=== PATIENT | female | born 1950 ===

== ENCOUNTER 2017-11-01 07:59 | Inpatient (IN) | payer OTHER ==
[~2017-11-01] VITALS: Ht 195.6 cm; Wt 99.8 kg
[2017-11-01] MEDS ORDERED: RELAFEN PO (09:00)
[2017-11-01] MEDS ORDERED: VISTARIL50 MG PO (09:00)
== END 2017-11-10 13:43 | disposition home or self-care (01) | DRG 470 ==
LOC: O/R 11-08 05:50 → SURG 11-08 07:58 → SURH 11-10 09:57
PROVIDERS: Orthopaedic Surgery
PROC: 0SRD0JZ Replacement of Left Knee Joint with Synthetic Substitute, Open Approach (ICD-10-PCS; principal; 2017-11-08 11:00)
DX: M17.12 Unilateral primary osteoarthritis, left knee (principal)